=== PATIENT | male | born 1980 | race Caucasian/White ===

== ENCOUNTER 2023-10-14 21:53 | Emergency (ER) | payer BC ==
[~2023-10-14] VITALS: Ht 185.4 cm; Wt 84.5 kg
[~2023-10-14 21:53] MED LIST: CEPHALEXIN500 M1 PO; FLOMAX 0.40.4 MG/CAP PO; NORCO 325 MG-51 TAB PO; ZOFRAN ODT4 MG PO
[2023-10-14] MEDS ORDERED: Ketorolac 30 MG/ML VIAL IM ONE (23:15)
[2023-10-14] MEDS ORDERED: Morphine 10 MG/ML VIAL IM ONE (23:15)
[2023-10-15 00:18] LABS: COLLECTION METHOD CLEAN CATCH
[2023-10-15 00:56] LABS: URINE APPEARANCE CLOUDY (CLEAR/HAZY); URINE BLOOD 3+ (NEGATIVE); URINE COLOR YELLOW (YELLOW); URINE GLUCOSE NEGATIVE (NEGATIVE); URINE KETONE 1+ (NEGATIVE); URINE NITRATE NEGATIVE (NEGATIVE); URINE PROTEIN(semi-quant) 1+ (NEGATIVE)
[2023-10-15 01:32] VITALS: BP 145/91; PULSE 67; TEMP 98
== END 2023-10-15 01:32 | disposition home or self-care (01) ==
LOC: COL.ER 21:53
PROVIDERS: Emergency Medicine
DX: N20.0 Calculus of kidney (principal)
CPT/HCPCS: J1885